=== PATIENT | female | born 1960 | race Caucasian/White ===

== ENCOUNTER → 2024-07-31 | Outpatient (CLI) | payer OTHER, MEDICARE, SELFPAY | END | disposition home or self-care (01) | LOC: RAD 15:08 | PROVIDERS: PCP Family Medicine; Referring Provider Surgery Plastic and Reconstructive Surgery; Visit Provider Surgery Plastic and Reconstructive Surgery | DX: R22.31 Localized swelling, mass and lump, right upper limb (principal) | CPT/HCPCS: 73140 ==

== ENCOUNTER → 2024-11-27 | Outpatient (CLI) | payer OTHER, MEDICARE, SELFPAY ==
[2024-09-09 06:29] VITALS: BP 143/89; PULSE 80; RESP 16; TEMP 36.3; O2SAT 97; BMI 33.4
--- NOTE | 2024-09-09 06:53 | NURSING ---
per md pt cyst is gone, surgery cancelled, pt to follow up in the office. pt d/c to home
== END | disposition home or self-care (01) ==
LOC: PAT 13:10
PROVIDERS: PCP Family Medicine; Referring Provider Surgery Plastic and Reconstructive Surgery; Visit Provider Surgery Plastic and Reconstructive Surgery
DX: Z01.818 Encounter for other preprocedural examination (principal)
CPT/HCPCS: A4216